=== PATIENT | female | born 1975 | race Caucasian/White ===

== ENCOUNTER 2017-05-17 21:59 | Emergency (ER) | payer MEDICAID ==
[~2017-05-17] VITALS: Ht 162.6 cm; Wt 83.9 kg
[~2017-05-17 21:59] MED LIST: DONLUD PO; PHE25 PO
[2017-05-17 22:57] LABS: BASOPHIL % 0.9 % (0-2); PLATELET COUNT 331 x10^3mcL (130-400); RED CELL DISTRIBUTION WIDTH 14.1 % (11.5-14.5)
[2017-05-17 23:06] LABS: CALCIUM 8.9 mg/dL (8.5-10.1); CARBON DIOXIDE 25.4 mmol/L (21-32); CHLORIDE SERUM 104 mmol/L (98-107); CREATININE SERUM 0.6 mg/dL (0.6-1.0); GFR1 > 60 mL/min; GLUCOSE SERUM 96 mg/dL (74-106); POTASSIUM SERUM 3.5 mmol/L (3.5-5.1); SODIUM SERUM 140 mmol/L (136-145)
[2017-05-17 23:15] LABS: ALBUMIN 3.6 g/dL (3.4-5.0); ALKALINE PHOSPHATASE 91 U/L (46-116); ALT/SGPT 17 U/L (14-59); AST/SGOT 20 U/L (15-37); BILIRUBIN TOTAL 0.2 mg/dL (0.20-1.00); LIPASE 294 IU/L (73-393); TOTAL PROTEIN, SERUM 7.3 g/dL (6.4-8.2)
[2017-05-18 00:32] LABS: UA SPECIFIC GRAVITY <=1.005 (1.005-1.035); microscopic required? YES; urine erythrocyte 3+ (NEGATIVE)
[2017-05-18 02:05] VITALS: BP 130/81
== END 2017-05-18 02:05 | disposition home or self-care (01) ==
LOC: ED 21:59
PROVIDERS: Emergency Medicine
DX: N93.8 Other specified abnormal uterine and vaginal bleeding (principal); R10.2 Pelvic and perineal pain; K58.9 Irritable bowel syndrome, unspecified; Z90.49 Acquired absence of other specified parts of digestive tract; Z90.89 Acquired absence of other organs
CPT/HCPCS: J1170; J1200; J2405; J7030

== ENCOUNTER 2017-06-03 01:15 | Inpatient (IN) | payer MEDICAID ==
[~2017-06-03] VITALS: Ht 152.4 cm; Wt 79.2 kg
--- NOTE | 2017-06-03 04:32 | NUR ---
PATIENT SEEN WITH COMPLAINT OF ABDOMINAL PAIN AND VOMITING. PATIENT IS WAITING FOR MD EVALUATION.
--- NOTE | 2017-06-03 05:20 | NUR ---
PATIENT WAS SEEN BY . DR PERSAUD INSERTED A LEFT EJ. PATIENT MEDICATWED WITH COMPAZINE AND FENTANYL IVP. PATIENT WENT TO HAVE XRAY DONE
[2017-06-03 05:48] LABS: BASOPHIL % 0.3 % (0-2); PLATELET COUNT 368 x10^3mcL (130-400); RED CELL DISTRIBUTION WIDTH 14.3 % (11.5-14.5)
[2017-06-03 05:53] LABS: CALCIUM 9.7 mg/dL (8.5-10.1); CARBON DIOXIDE 27.8 mmol/L (21-32); CHLORIDE SERUM 106 mmol/L (98-107); CREATININE SERUM 0.7 mg/dL (0.6-1.0); GFR1 > 60 mL/min; GLUCOSE SERUM 102 mg/dL (74-106); POTASSIUM SERUM 3.2 mmol/L (3.5-5.1); SODIUM SERUM 143 mmol/L (136-145)
[2017-06-03 05:59] LABS: ALBUMIN 4.3 g/dL (3.4-5.0); ALKALINE PHOSPHATASE 95 U/L (46-116); ALT/SGPT 28 U/L (14-59); AMYLASE 87 U/L (25-115); AST/SGOT 27 U/L (15-37); BILIRUBIN TOTAL 0.4 mg/dL (0.20-1.00); LIPASE 315 IU/L (73-393); TOTAL PROTEIN, SERUM 8.2 g/dL (6.4-8.2)
--- NOTE | 2017-06-03 06:04 | NUR ---
PATIENT CALL TO REPORT SHE WAS STILL IN PAIN. AWARE.
--- NOTE | 2017-06-03 06:45 | NUR ---
PATIENT MEDICATED WITH FENTANYL, REGLAN AND BENADRYL. REPORT WAS GIVEN TO JERZY. PATIENT TRANSPORTED TO ROOM 402B
--- NOTE | 2017-06-03 07:03 | NUR ---
PATIENT TRANSPORTED TO ROOM.
--- NOTE | 2017-06-03 07:15 | NUR ---
RECEIVED REPORT FROM CATERINA MARSH FINANCE LECTURER AT BEDSIDE. PT AWAKE AND ALERT. AFEBRILE. TELE #41 PLACED SINUS RHYTHM. DENIES CHEST DISCOMFORT. RESP 18 EVEN. BREATH SOUNDS CLEAR. PULSE OX 97% RA. ABD SOFT, BOWEL TONES PRESENT. REPORTS "HX OF IBS, LOOSE STOOLS AT HOME. NOT EATING FOR THREE DAYS BECAUSE OF THE PAIN AND NAUSEA." REPORTS "PAIN IN UPPER PART OF INTESTINES 06/05 RIGHT NOW. I FELT MIXING THE BENADRYL WITH THE PAIN MEDICINE WORKED THE BEST. CAN I HAVE THE BENADRYL LIKE THAT." VOIDING QS. NO EDEMA. PULSES PRESENT. SCD APPLIED. IV LEFT JUGULAR SITE PATENT. REMAINS NPO AT THIS TIME PENDING EVAL BY RESIDENT. SIDE RAILS UP X2. CALL LIGHT IN REACH. WILL CONTINUE TO MONITOR.
[2017-06-03 07:21] LABS: UA SPECIFIC GRAVITY >=1.030 (1.005-1.035); microscopic required? YES; urine erythrocyte NEGATIVE (NEGATIVE)
--- NOTE | 2017-06-03 07:30 | NUR ---
REC'D PT FROM ED VIA AMBROSE ACCOMPANIED BY NURSE. PT AAOX4, SPEECH CLEAR, FOLLOWS COMMANDS. C/O ABD PAIN 7/10, NAUSEA, AND DIARRHEA. NO PRN MEDS ORDERED. DAY NURSE TO FOLLOW UP PRN MEDS. APPLIED TELE. DENIES CP, DIZZINESS, OR PALPITATIONS. NO EDEMA NOTED. AMBULATORY SKIN INTACT. IV TO EJ PATENT AND INFUSING. ORIENTED TO SURROUNDINGS AND DEVICES. CALL LIGHT WITHIN REACH, BED AT LOWEST POSITION. WILL ENDORSE TO DAY NURSE.
--- NOTE | 2017-06-03 08:10 | NUR ---
DR CORONADO AND MEDICAL TEAM IN ON ROUNDS. CHARGE AND PRIMARY NURSE PRESENT. DISCUSSED WITH PATIENT PLAN OF CARE. TO KEEP NPO. CONTINUE IVF AND PAIN MANAGEMENT. PT VERBALIZED UNDERSTANDING.
--- NOTE | 2017-06-03 09:00 | NUR ---
PAGE TO DR MURPHY RE:ADMISSION ORDERS, PAIN MANAGEMENT AND K+=3.2. RETURNED CALL. UPDATED WITH PT STATUS. TO ORDER KRIDER, PAIN MEDS, IVF NORMAL SALINE 100CC IN PROGRESS. PT STATES "MY PAIN IS STARTING TO COME BACK, 06/05." WILL CONTINUE TO MONITOR AND MEDICATE ORDERED. REFUSES NORCO AT THIS TIME.
[2017-06-03 09:31] VITALS: BP 137/85
[2017-06-03 09:39] LABS: MAGNESIUM 1.8 mg/dL (1.8-2.4)
[2017-06-03 09:50] LABS: FREE T4 0.77 ng/dL (0.76-1.46); T4(THYROXINE) 6.5 ug/dL (4.7-13.3)
[2017-06-03 10:06] LABS: T3 TOTAL 1.03 ng/mL
[2017-06-03 10:12] VITALS: BP 138/87
--- NOTE | 2017-06-03 10:30 | NUR ---
PT C/O "PAIN IS COMING BACK STRONG. I AM NAUSEATED." NO EMESIS. MED WITH ZOFRAN 4MG IVP ORDERED. CONTINUES TO REFUSE NORCO. REQUESTS DILAUDID WITH BENADRYL IV. WILL PAGE DR MURPHY. JAMES STARTED. INSTRUCTED WITH NEED FOR K+ REPLACEMENT. UP TO BATHROOM AND REPORTS "CLEAR LOOSE STOOLS." BACK TO BED. HOLDING STOMACH. CALL LIGHT IN REACH.
--- NOTE | 2017-06-03 10:45 | NUR ---
PAGE TO DR MURPHY. UPDATED WITH PAIN MANAGEMENT STATUS AND PTS REQUEST FOR DILAUDID AND BENADRYL. WILL BE OVER TO SPEAK WITH PT.
--- NOTE | 2017-06-03 11:41 | NUR ---
SPOKE WITH DR MURPHY. PT ANXIOUS C/O 09/05 ABD PAIN. ONE TIME ORDER GIVEN FOR DILAUDID AND BENADRYL. MED WITH DILAUDID 0.5MG IV AND BENADRYL 25MG IVP ORDERED. CALL LIGHT IN REACH. WILL CONTINUE TO MONITOR.
[2017-06-03 11:50] VITALS: Ht 152.4 cm; Wt 79.2 kg
--- NOTE | 2017-06-03 12:05 | NUR ---
PT MORE RELAXED. STATES "NOT SLEEPY, PAIN DOWN TO 7/10. I AM TRYING TO KEEP STILL." CALL LIGHT IN REACH.
--- NOTE | 2017-06-03 12:43 | NUR ---
DR ULLOA IN TO SPEAK WITH PT.
[2017-06-03 13:38] VITALS: BP 142/95
--- NOTE | 2017-06-03 15:07 | NUR ---
PT C/O ABD DISCOMFORT 07/06. REQUESTS DILAUDID AND BENADRYL TOGETHER. MED WITH DILAUDID 0.5MG AND BENADRYL 25MG IVP ORDERED.
--- NOTE | 2017-06-03 15:30 | NUR ---
REPORTS "PAIN DOWN TO 7. FEELING LITTLE BETTER."
[2017-06-03 16:20] VITALS: BP 165/96
--- NOTE | 2017-06-03 18:00 | NUR ---
UP TO VOID. URINE SPEC TO LAB FOR UDS. REQUESTS PAIN MEDICATION FOR ABD DISCOMFORT 07/06. MED WITH DILAUDID 0.5MG AND BENADRYL 25MG IVP ORDERED. CALL LIGHT IN REACH.
--- NOTE | 2017-06-03 18:30 | NUR ---
C/O "NOT FEELING THE EFFECT OF THE PAIN MEDICATION. MY NECK IS A LITTLE SORE." NOTED SLIGHT SWELLING TO LEFT NECK REGION. REMOVED #20 ANGIO CATH TIP INTACT. ATTEMPT TO RESTART RFA X2 UNSUCCESSFUL. YUMIKO MARSH CHARGE NURSE NOTIFIED.
--- NOTE | 2017-06-03 18:44 | NUR ---
C/O ABD PAIN. STATES "WHAT CAN I HAVE.?" MED WITH NORCO PO ORDERED.
--- NOTE | 2017-06-03 18:45 | NUR ---
YUMIKO RN AND JAMI RN AT BEDSIDE TO EVAL IV STATUS. DIFFICULTY WITH INSERTING NEW LINE. DR ORDERED FOR POTASSIUM 40MG ORAL TABLETS. PT REFUSES TABLETS. STATES "WILL TAKE LIQUID FORM." CALL TO PHARMACY TO CHANGE TO ORAL LIQUID.
[2017-06-03 19:21] LABS: AMPHETAMINE QUAL UR NONE DETECTED (NEG <=1000)
--- NOTE | 2017-06-03 19:30 | NUR ---
JAMI MARSH ABLE TO INSERT #22 ANGIO TO LEFT HAND INDEX FINGER PATENT. PT C/O NAUSEA REQUESTS ZOFRAN. MED WITH ZOFRAN 4MG IVP ORDERED. CALL LIGHT IN REACH. REPORT WITH PRISCILA MARSH MOLD WORKER AT BEDSIDE. UPDATED WITH PAIN MANAGEMENT SCHEDULE.
--- NOTE | 2017-06-03 19:34 | NUR ---
RECEIVED PATIENT IN BED AWAKE ,ALERT AND ORIENTED WITH NO C/O PAIN THIS TIME. IV REINSERTED TO LH INTACT AND INFUSING WELL. TELE# 41 NSR ON MONITOR. SCD TO BLE IN PLACE. WILL CONTINUE TO MONITOR. CALL LIGHT WITHINREACH.
[2017-06-03 20:37] VITALS: BP 134/80
--- NOTE | 2017-06-03 21:11 | NUR ---
C/O ABDOMINAL PAIN AT SCALE OF 8/10 PER PATIENT MEDICATED WITH DILAUDID 0.5MG IVP PRESCRIBED. WILL CONTINUE TO MONITOR.
--- NOTE | 2017-06-03 22:00 | NUR ---
MODERATE RELIEF NOTED PER PATIENT AFTER PAIN MEDS WAS GIVEN.
--- NOTE | 2017-06-03 23:54 | NUR ---
STILL AWAKE C/O ABDOMINAL PAIN AT SCALE OF 8/10 PER PATIENT MEIDCATED PRESCRIBED WITH DILAUDID 0.5MG IVP. WILL CONTINUE TO MONITOR.
--- NOTE | 2017-06-04 01:48 | NUR ---
STILL AWAKE C/O NAUSEA AND REQUESTED FOR MEDS ,ZOFRAN 4MG IVP GIVEN. WILL CONTINUE TO MONITIOR.
--- NOTE | 2017-06-04 05:04 | NUR ---
AWAKE MOST OF THE TIME C/O ABDOMINAL PAIN AND NAUSEA, MEDICATED PRESCRIBED.
[2017-06-04 05:42] VITALS: BP 105/68
--- NOTE | 2017-06-04 06:05 | NUR ---
AWAKE C/O ABDOMINAL X3 THE ENTIRE SHIFT AND MEDICATED PRESCRIBED. ALL NEEDS ATTENDED.
--- NOTE | 2017-06-04 08:00 | NUR ---
RECEIVED PATIENT ALERT AND ORIENTED TIMES FOUR. PATIENT IS WITH COMPLAINTS OF PAIN TO THE STOMACH AND REQUESTED ZOFRAN. GACVE RODERED AND IV REMAINS INTACT AT THIS TIME. SHE IS REQUESTING TOO A CENTRAL LINE. PATIENT HAS BEEN WITH NEW IV SITES FREQUENTLY ON THIS ADMISSION AND HAS BEEN RECEIVING DILAUDID EVERY THREE HOURS AROUND THE CLOCK PRN. SHE HAS A HISTORY OF IBS AND INDICATES SHE HAS BEEN HAVING FREQUENT STOOLS AND REFUSED THE COLACE AT THIS TIME. SHE HAS A HISTORY OF SCIATICA BUT HAS NOT COMPLAINED OF THIS AT THIS TIME. PATIENT WHITTAKER NEGATIVBE US AND LABS ARE WITH MAGNESIUM AT 1.6 AND ORDERED WAS MG ORAL AND POTASSIUM AT 3.2 ON ADMISSION AND NOW AT 3.8. PATIENT HAS AIC AT 5.7 AND ORDER IS THE GLUCOSE CHECKS AND LAST GLUCOSE AT 86 PER THE LABS THIS AM. WBCS IMPROVED AT AT 8.5 FROM THE ADMIT OF 13.5. LUNGS ARE CLEAR AND BOWEL SOUNDS ACTIVE AND ABDOMEN IS DISTENDED AND SOMEWHAT FIRM. PATIENT AH SOEM EDMEA TO THE LOWER EXTREMTIES AND IS WITH OBESITY AND HAS COMPLAINED OF MULTIPLE BRUISING TO THE UPPER AND LOWER ARMS FROM IV INSERTIONS. VITALS AT THIS TIME AT 98.2, 68, 18, 105/68, 98% ON ROOM AIR.
--- NOTE | 2017-06-04 08:15 | NUR ---
SEEN BY THE INTERNS AND RESIDENT AND PLAN OF CARE DISCUSSED.
[2017-06-04 08:41] LABS: BASOPHIL % 0.5 % (0-2); PLATELET COUNT 312 x10^3mcL (130-400); RED CELL DISTRIBUTION WIDTH 14.4 % (11.5-14.5)
[2017-06-04 08:44] LABS: CALCIUM 8.6 mg/dL (8.5-10.1); CARBON DIOXIDE 23.7 mmol/L (21-32); CHLORIDE SERUM 102 mmol/L (98-107); CREATININE SERUM 0.6 mg/dL (0.6-1.0); GFR1 > 60 mL/min; GLUCOSE SERUM 86 mg/dL (74-106); POTASSIUM SERUM 3.8 mmol/L (3.5-5.1); SODIUM SERUM 137 mmol/L (136-145)
[2017-06-04 09:05] LABS: MAGNESIUM 1.7 mg/dL (1.8-2.4); PHOSPHOROUS 2.5 mg/dL (2.5-4.9)
[2017-06-04 09:30] VITALS: BP 118/76
[2017-06-04 13:41] VITALS: BP 129/74
--- NOTE | 2017-06-04 13:50 | NUR ---
CONSENT AND CHECKLIST STARTED. PATIENT RECIEVED HER CLEAR LIQUID DIET AND TOLERATED WELL. STILL WITH LOOSE STOOLS SHE STATES. SHE IS AWARE OF THE INDICATION FOR THE MOVI PREP FOR THE COLONOSCOPY.
--- NOTE | 2017-06-04 14:24 | NUR ---
STARTED ON MOVI PREP ORDERED. WILL CONTINUE TO MONITOR INDICATED.
[2017-06-04 17:20] VITALS: BP 148/93
--- NOTE | 2017-06-04 17:26 | NUR ---
COMPLETED THE MOVI PREP THE FIRST DOSING AND PATIENT STATES SHE IS FAIRLY CLEAR. ADVISED HER THAT SHE WILL BE RECEIVING ANOTHER DOSING ON THE UNDERWRITING ACCOUNT REPRESENTATIVE PRIOR TO HER TEST. PATIENT STATES SHE HAS HAD THE PROCEDURE PRIOR AND SHE HAS NO NEW QUESTIONS AT THIS TIME. SHE STILL IS USING THE DILAUDID AND INTERMITTANTLY THE BENADRYL AND THE ZOFRAN. SHE TELLS THE STAFF SHE IS DUE AND WHEN. SHE STATES THE PAIN IS TO THE UPPER EPIGASTRIC AREA AND ACROSS THE ABDOMEN. WILL CONTINUE TO MONITOR INDICATED.
--- NOTE | 2017-06-04 19:27 | NUR ---
RECEIVED PATIENT IN BED AWAKE, ALERT AND ORIENTED WITH NO C/O ABDOMINAL PAIN THIS TIME, PATIENT MEDICATED EARLIER FOR PAIN BY AM SHIFT RN.CLEAR BS SATTING AT 98% RA. ABDOMEN ROUND AND NON TENDER WITH ACTIVE BS, PT ON BOWEL PREP FOR COLONOS COPY TOMORROW 06/05/17. IV TO LH INTACT AND INFUSING WELL. WILL CONTINUE TO MONITOR, CALL LIGHT WITHIN REACH.
[2017-06-04 20:58] VITALS: BP 141/88
--- NOTE | 2017-06-04 21:10 | NUR ---
C/O ABDOMINAL PAIN MEDICATED WITH DILAUDID 0.5 MG IVP PRESCRIBED. WILL CONTINUE TOMMONITOR.
--- NOTE | 2017-06-05 00:08 | NUR ---
AWAKE THIS TIME C/O ABDOMINAL PAIN AND NAUSEA MEDCIATED PRESCRIBED.
--- NOTE | 2017-06-05 05:07 | NUR ---
KEPT ON NPO , AWAKE MOST OF THE TIME ASKING PAIN MEDS Q 3HRS AND MEDICATED PRESCRIBED. ALL NEEDS ATTENDED. HAD BM X5 LOOSE AND CLEAR AFTER BOWEL PREP WAS GIVEN.
[2017-06-05 05:27] VITALS: BP 135/83
[2017-06-05 06:55] LABS: BASOPHIL % 1.1 % (0-2); PLATELET COUNT 308 x10^3mcL (130-400); RED CELL DISTRIBUTION WIDTH 14.1 % (11.5-14.5)
[2017-06-05 07:33] LABS: CARBON DIOXIDE 24.8 mmol/L (21-32); CHLORIDE SERUM 103 mmol/L (98-107); CREATININE SERUM 0.4 mg/dL (0.6-1.0); GFR1 > 60 mL/min; GLUCOSE SERUM 83 mg/dL (74-106); MAGNESIUM 1.9 mg/dL (1.8-2.4); PHOSPHOROUS 2.9 mg/dL (2.5-4.9); SODIUM SERUM 140 mmol/L (136-145)
--- NOTE | 2017-06-05 07:36 | NUR ---
PT AWAKE ALERT AND ORIENTED X4 ABLE O MAKE NEEDS KNOWN. MEDSURG PT. PULSES EQUAL BILATERAL MILD TRACE EDEMA NOTED TO BLE. SCDS IN PLACE. LUNGS CTA, DENIES SOB. BOWEL TONES ACTIVE IN ALL QUADS. BRP. IV TO THE LH PATENT AND INTACT. PT IS CALM AND COOPERATIVE [facility]. CALL LIGHT IN REACH.
--- NOTE | 2017-06-05 09:00 | NUR ---
PT OFF THE FLOOR IN GI LAB.
--- NOTE | 2017-06-05 11:09 | NUR ---
PT BACKON THE FLOOR FROM GI LAB. VS STABLE STEADY GAIT PT DENIES PAIN. CALL LIGHT IN REACH WILL CONTINUE TO MONITOR.
[2017-06-05] MEDS ORDERED: NORCO1 TA2 PO (11:50)
[2017-06-05 12:08] VITALS: BP 109/68
--- NOTE | 2017-06-05 13:01 | NUR ---
PT RESTING IN BED NO SIGNS OF DISTRESS PT DENIES PAIN AT THIS TIME. CALL LIGHT IN REACH WILL CONTINUE TO MONITOR.
--- NOTE | 2017-06-05 13:12 | NUR ---
PT RESTING IN BED, PT DENIES PAIN AT THIS TIME, A/O X4, NO SIGNS OF DISTRESS PT DENIES BLEEDING POST PROCEDURE. CALL LIGHT IN REACH [facility] ONTINUE TO MONITOR.
--- NOTE | 2017-06-05 14:45 | NUR ---
PATIENT DISCHARGE INSTRUCTIONS PROVIDED. PATIENT PROVIDED MEDICATION PRESCRIPTION AND INFORMED OF FOLLOW UP APPOINTMENT WITH PCP, ALL ITEMS ACCOUNTED FOR. PROVIDED PATIENT EDUCATION ON ADMITTINIG DIAGNOSIS. PATIENT VERBALIZED UNDERSTANDING. DC'D IV, CATHETER TIP INTACT. PATIENT ACCOMPANIED BY NURSE TO LOBBY.
== END 2017-06-05 14:55 | disposition home or self-care (01) | DRG 254 ==
LOC: ED 01:15 → MU 06:11 → DU 06:11 → MU 06-04 11:55
PROVIDERS: Emergency Medicine; Internal Medicine Gastroenterology; ADMIT Family Medicine
PROC: 0DBM8ZX Excision of Descending Colon, Via Natural or Artificial Opening Endoscopic, Diagnostic (ICD-10-PCS; 2017-06-05)
PROC: 0DBK8ZX Excision of Ascending Colon, Via Natural or Artificial Opening Endoscopic, Diagnostic (ICD-10-PCS; 2017-06-05)
PROC: 0DBH8ZX Excision of Cecum, Via Natural or Artificial Opening Endoscopic, Diagnostic (ICD-10-PCS; principal; 2017-06-05 08:30)
PROC: 0DBL8ZX Excision of Transverse Colon, Via Natural or Artificial Opening Endoscopic, Diagnostic (ICD-10-PCS; 2017-06-05 08:30)
DX: K58.9 Irritable bowel syndrome, unspecified (principal); N17.0 Acute kidney failure with tubular necrosis; M51.17 Intervertebral disc disorders with radiculopathy, lumbosacral region; E87.6 Hypokalemia; I10 Essential (primary) hypertension; E83.42 Hypomagnesemia; D64.9 Anemia, unspecified; Z68.35 Body mass index [BMI] 35.0-35.9, adult
CPT/HCPCS: 45378; 45380; 82962; 83880; 84439; J0780; J1170; J1200; J1610; J2250; J2310; J2405; J2765; J3010; J3360; J3480; J3490; J7030; Q0092

== ENCOUNTER 2017-11-23 21:44 | Emergency (ER) | payer MEDICAID ==
[~2017-11-23] VITALS: Ht 154.9 cm; Wt 72.6 kg
[~2017-11-23 21:44] MED LIST changes: +NORCO1 TA2 PO
[2017-11-23 22:43] VITALS: Ht 154.9 cm; Wt 72.6 kg
[2017-11-24 07:00] LABS: BASOPHIL % 0.4 % (0-2); PLATELET COUNT 334 x10^3mcL (130-400)
[2017-11-24 07:05] LABS: RED CELL DISTRIBUTION WIDTH 14.9 % (11.5-14.5)
[2017-11-24 07:12] LABS: CALCIUM 8.6 mg/dL (8.5-10.1); CARBON DIOXIDE 26.4 mmol/L (21-32); CHLORIDE SERUM 106 mmol/L (98-107); CREATININE SERUM 0.6 mg/dL (0.6-1.0); GFR1 > 60 mL/min; GLUCOSE SERUM 97 mg/dL (74-106); POTASSIUM SERUM 3.7 mmol/L (3.5-5.1); SODIUM SERUM 142 mmol/L (136-145)
[2017-11-24 07:17] LABS: ALBUMIN 3.5 g/dL (3.4-5.0); ALKALINE PHOSPHATASE 80 U/L (46-116); ALT/SGPT 17 U/L (14-59); AST/SGOT 12 U/L (15-37); BILIRUBIN TOTAL 0.2 mg/dL (0.20-1.00); LIPASE 294 IU/L (73-393); TOTAL PROTEIN, SERUM 7.2 g/dL (6.4-8.2)
[2017-11-24 10:00] VITALS: BP 123/80
== END 2017-11-24 10:00 | disposition home or self-care (01) ==
LOC: ED 21:44
PROVIDERS: Emergency Medicine
DX: R10.9 Unspecified abdominal pain (principal); J45.909 Unspecified asthma, uncomplicated; Z87.19 Personal history of other diseases of the digestive system; Z88.0 Allergy status to penicillin; Z88.5 Allergy status to narcotic agent; Z88.6 Allergy status to analgesic agent
CPT/HCPCS: J2405; J3010; J7030; Q0163

== ENCOUNTER 2018-11-28 18:49 | Emergency (ER) | payer MEDICAID ==
[~2018-11-28] VITALS: Ht 157.5 cm; Wt 70.3 kg
[2018-11-28 19:00] VITALS: Ht 157.5 cm; Wt 70.3 kg
[2018-11-28 22:08] VITALS: BP 101/59
== END 2018-11-28 22:08 | disposition home or self-care (01) ==
LOC: ED 18:49
DX: J98.01 Acute bronchospasm (principal); M54.9 Dorsalgia, unspecified; G89.29 Other chronic pain; Z88.0 Allergy status to penicillin; Z88.6 Allergy status to analgesic agent; Z88.5 Allergy status to narcotic agent; Z90.89 Acquired absence of other organs
CPT/HCPCS: 87804; J2405

== ENCOUNTER 2019-06-10 22:27 | Emergency (ER) | payer MEDICAID ==
[~2019-06-10] VITALS: Ht 152.4 cm; Wt 68.0 kg
[2019-06-10 23:08] VITALS: Ht 152.4 cm; Wt 68.0 kg
[2019-06-11 00:35] VITALS: BP 98/57
[2019-06-11 00:43] LABS: AMPHETAMINE QUAL UR NONE DETECTED (See below)
== END 2019-06-11 00:35 | disposition home or self-care (01) ==
LOC: ED 22:27
PROVIDERS: Emergency Medicine
DX: M25.551 Pain in right hip (principal); J45.909 Unspecified asthma, uncomplicated; Z90.89 Acquired absence of other organs; Z98.890 Other specified postprocedural states; Z88.0 Allergy status to penicillin; Z88.6 Allergy status to analgesic agent; Z88.5 Allergy status to narcotic agent
CPT/HCPCS: J3010

== ENCOUNTER 2019-10-09 09:05 | Emergency (ER) | payer MEDICAID ==
[~2019-10-09] VITALS: Ht 152.4 cm; Wt 76.2 kg
[2019-10-09 09:34] VITALS: Ht 152.4 cm; Wt 76.2 kg
[2019-10-09 11:57] VITALS: BP 128/87
== END 2019-10-09 11:57 | disposition home or self-care (01) ==
LOC: ED 09:05
DX: B34.9 Viral infection, unspecified (principal); R04.0 Epistaxis; J45.909 Unspecified asthma, uncomplicated; Z88.0 Allergy status to penicillin; Z88.6 Allergy status to analgesic agent; Z98.890 Other specified postprocedural states; Z90.89 Acquired absence of other organs

== ENCOUNTER 2019-10-22 18:55 | Emergency (ER) | payer MEDICAID ==
[~2019-10-22] VITALS: Ht 152.4 cm; Wt 76.2 kg
[2019-10-22 19:03] VITALS: Ht 152.4 cm; Wt 76.2 kg
[2019-10-22 20:47] LABS: UA SPECIFIC GRAVITY 1.025 (1.005-1.035); microscopic required? YES; urine erythrocyte NEGATIVE (NEGATIVE)
[2019-10-22 20:55] LABS: BASOPHIL % 0.2 % (0-2); PLATELET COUNT 374 x10^3mcL (130-400)
[2019-10-22 20:56] LABS: RED CELL DISTRIBUTION WIDTH 14.9 % (11.5-14.5)
[2019-10-22 21:06] LABS: CALCIUM 9.5 mg/dL (8.5-10.1); CARBON DIOXIDE 26.3 mmol/L (21-32); CHLORIDE SERUM 104 mmol/L (98-107); CREATININE SERUM 0.6 mg/dL (0.6-1.0); GFR1 > 60 mL/min; GLUCOSE SERUM 117 mg/dL (74-106); POTASSIUM SERUM 3.8 mmol/L (3.5-5.1); SODIUM SERUM 141 mmol/L (136-145)
[2019-10-22 21:10] LABS: ALBUMIN 3.7 g/dL (3.4-5.0); ALKALINE PHOSPHATASE 95 U/L (46-116); ALT/SGPT 17 U/L (14-59); AMYLASE 70 U/L (25-115); AST/SGOT 14 U/L (15-37); BILIRUBIN TOTAL 0.2 mg/dL (0.20-1.00); LIPASE 145 IU/L (73-393)
[2019-10-23 01:36] VITALS: BP 133/87
== END 2019-10-23 01:36 | disposition home or self-care (01) ==
LOC: ED 18:55
PROVIDERS: Emergency Medicine
DX: K52.9 Noninfective gastroenteritis and colitis, unspecified (principal); J45.909 Unspecified asthma, uncomplicated; Z90.49 Acquired absence of other specified parts of digestive tract; Z88.0 Allergy status to penicillin; Z88.6 Allergy status to analgesic agent; Z98.890 Other specified postprocedural states
CPT/HCPCS: J2270; J2405; J7030; Q0092; Q0162